=== PATIENT | male | born 1940 | race Caucasian/White ===

== ENCOUNTER → 2022-03-07 12:40 | Outpatient (CLI) | payer MEDICARE, SELFPAY | PROVIDERS: PCP Physician Assistant Medical; Visit Provider Physician Assistant Medical | DX: L03.90 Cellulitis, unspecified (principal) | CPT/HCPCS: 87070; 87075; 87077; 87147; 87186; 87205 ==

== ENCOUNTER → 2022-04-03 09:03 | Outpatient (CLI) | payer MEDICARE, SELFPAY ==
[2022-04-03 19:58] LABS: Add Manual Diff / Slide Review NO; Basophils Absolute Auto 100 /uL (0-100); Basophils Percent Auto 1.2 % (0-2); Eosinophils Absolute Auto 200 /uL (0-450); Eosinophils Percent Auto 3.4 % (2-4); Hematocrit 42.9 % (41-53); Hemoglobin 14.2 g/dL (13.5-17.5); Lymphocytes Absolute Auto 2200 /uL (1100-4500); Lymphocytes Percent Auto 38.2 % (25-40); Mean Corpuscular HGB Conc 33.2 % (30-36); Mean Corpuscular Hemoglobin 33.1 PG (26-34); Mean Corpuscular Volume 99.8 fL (80-100); Monocytes Absolute Auto 500 /uL (0-900); Neutrophils Absolute Auto 2800 /uL (1500-7000); Neutrophils Percent Auto 49.2 % (50-75); Platelet Count 231 X10^3/uL (150-400); Red Cell Distribution Width 13.4 % (11.6-14.8); White Blood Cell Count 5.8 X10^3/uL (4.5-11.0)
[2022-04-03 20:15] LABS: Alanine Aminotransferase 40 IU/L (<50); Albumin 4.4 g/dL (3.5-5.0); Albumin Globulin Ratio 1.6 (1.0-2.8); Alkaline Phosphatase 89 U/L (38-126); Aspartate Aminotransferase 43 IU/L (17-59); BUN Creatinine Ratio 20.3 (6-22); Bilirubin Total 0.7 mg/dL (0.2-1.3); Blood Urea Nitrogen 24 mg/dL (9-20); Calcium 9.2 mg/dL (8.4-10.2); Carbon Dioxide 29 mmol/L (22-32); Chloride 101 mmol/L (98-107); Cholesterol 199 mg/dL (140-199); Estimated Glomerular Filt Rate > 60 mL/min (>60); Globulin 2.7 g/dL (1.7-4.1); Glucose 94 mg/dL (80-110); HDL Cholesterol 84 mg/dL (40-60); HEMOLYSIS < 15 (0-50); LDL Cholesterol Calculated 99 mg/dL (<100); Potassium 4.6 mmol/L (3.4-5.1); Sodium 136 mmol/L (137-145); Total Protein 7.1 g/dL (6.3-8.2); Triglycerides 82 mg/dL (35-150)
[2022-04-03 20:46] LABS: TSH w/ Reflex to FT4 1.76 uIU/mL (0.47-4.68)
== END ==
PROVIDERS: PCP Physician Assistant Medical; Visit Provider Physician Assistant Medical
DX: R55 Syncope and collapse (principal)
CPT/HCPCS: 80053; 80061; 84443; 85025

== ENCOUNTER → 2022-05-27 15:06 | Outpatient (CLI) | payer MEDICARE, SELFPAY ==
--- NOTE | 2022-05-28 13:20 | DI.NM.S_ITS ---
DATE OF SERVICE: PROCEDURE: Exercise stress test. INDICATIONS: Dizziness, near syncope, hypertension. CARDIAC STRESS: The patient underwent exercise stress test under the supervision of an attending staff. The patient walked on Marty protocol for 6 minutes and achieved maximum heart rate of 139, which was 99% of target heart rate. Resting blood pressure 140/90 and peak blood pressure 190/96 mmHg. Achieved 7 METs of workload. ALEE -15%. Baseline rhythm sinus. During stress, no convincing ischemic changes seen. At peak exercise, patient has frequent PVCs, including ventricular couplets without any ventricular tachycardia. The patient felt fatigue. No chest pain. CONCLUSION: 1. Exercise stress test is negative for inducible ischemia. 2. Good exercise tolerance. Functional aerobic impairment -15%. Achieved 7 metabolic equivalents of workload. The patient is 81 years old. Resting blood pressure 140/90 and peak blood pressure 190/96 mmHg. At peak exercise, frequent premature ventricular contractions, including ventricular couplets without any ventricular tachycardia. No significant premature ventricular contractions in recovery. No claudication, lightheadedness or chest pain during exercise. Overall, low-risk exercise stress test. Correlate clinically. Dillon Hair - LINDSAY/tommy/cody doc#: [id number]/job#: [id number] dd: 05/27/2022 16:33:00 dt: 05/28/2022 01:11:00 DICTATING /COPIES TO: Charlene Mckeon MD COPIES MNE: KALYAN;
== END ==
PROVIDERS: PCP Physician Assistant Medical; Referring Provider Internal Medicine Cardiovascular Disease; Visit Provider Internal Medicine Cardiovascular Disease
DX: R55 Syncope and collapse (principal); I10 Essential (primary) hypertension; R42 Dizziness and giddiness
CPT/HCPCS: 93017

== ENCOUNTER → 2024-07-21 11:11 | Outpatient (CLI) | payer MEDICARE, SELFPAY ==
--- NOTE | 2024-07-21 11:15 | DI.CT.S_ITS ---
PROCEDURE: CT SINUS SCREEN WO CON INDICATIONS: Chronic cough sinus pressure drainage TECHNIQUE: Noncontrast 3.0 mm axial images acquired from the frontal sinuses to the mid- sella, with coronal and sagittal reformats. For radiation dose reduction, the following was used: automated exposure control, adjustment of mA and/or kV according to patient size. COMPARISON: None. FINDINGS: Image quality: Excellent. Maxillary Sinuses: Minimal mucosal thickening is seen inferiorly. The superior medial russell of the maxillary sinuses are demineralized. Ethmoid Air Cells: There is mild mucosal thickening within the ethmoid air cells. There is demineralization of the ethmoid air cell bony septations. Sphenoid Sinuses: No bony remodeling or destruction. Sinuses are clear. Frontal Sinuses: No bony remodeling or destruction. Moderate mucosal thickening is seen within the inferior medial right frontal sinus. Ostiomeatal Complexes: The ostiomeatal complexes are patent, yet they are highly constitutionally narrowed, with bilateral Valeriano cells. Miscellaneous: Visualized intra-orbital contents are normal. No zoe bullosa or paradoxical turbinate curvature. There is mild rightward nasal septal deviation. IMPRESSION: Scattered paranasal sinus disease is seen, which is worst within the right maxillary sinus. The ostiomeatal complexes are patent, yet they are highly constitutionally narrowed, with bilateral Valeriano cells. Dictated by: Francis Marquis M.D. on 07/21/2024 at 16:15 Approved by: Francis Marquis M.D. on 07/21/2024 at 16:17
== END ==
PROVIDERS: PCP Family Medicine; Referring Provider Family Medicine; Visit Provider Family Medicine
DX: J32.8 Other chronic sinusitis (principal); R05.3 Chronic cough
CPT/HCPCS: 70486

== ENCOUNTER → 2024-08-09 14:23 | Outpatient (CLI) | payer MEDICARE, SELFPAY ==
--- NOTE | 2024-08-09 14:25 | DI.CT.S_ITS ---
PROCEDURE: CT CHEST W CON INDICATIONS: COUGH/SHORTNESS OF BREATH TECHNIQUE: After the administration of intravenous contrast, 5 mm thick sections acquired from the pulmonary apices to the posterior costophrenic angles. 1 mm axial lung, 5 mm thick coronal and sagittal reformats and 7 mm axial MIP were acquired. For radiation dose reduction, the following was used: automated exposure control, adjustment of mA and/or kV according to patient size. COMPARISON: [facility] ([facility] CR, XR CHEST 2V, 02/19/2022, 14:50. [facility], CT, CT SOFT TISSUE NECK W CON, 08/09/2024, 15:11. FINDINGS: Image quality: Diagnostic. Lower Neck: No enlarged lymph nodes. Thyroid: No thyroid nodules which require sonographic follow up, per consensus guidelines. Axillae: No enlarged lymph nodes. Chest Wall: Unremarkable. Bones: No suspicious osseous lesion. Lungs and Pleura: No pneumothorax or pleural effusions. No acute airspace opacity. A few small pulmonary nodules. For example: -Right lower lobe 0.7 x 0.4 cm, (4/189). Platelike appearance. -Right middle lobe 0.3 cm, (4/134). Heart: Heart size is normal. Moderate to severe coronary artery disease. No pericardial effusion. Thoracic Vessels: The aorta and pulmonary arteries demonstrate normal size. Mediastinum and Pearl: No enlarged lymph nodes. Esophagus: No wall thickening. No hiatal hernia. Upper Abdomen: Visualized upper abdomen solid organs and bowel loops appear normal. IMPRESSION: 1. No acute airspace opacity. No pleural effusion. 2. Right lower lobe pulmonary nodule measuring 0.6 cm mean diameter. -Recommend follow-up CT chest in 12 months. 3. No adenopathy. Dictated by: Tushar Swain M.D. on 08/10/2024 at 8:49 Approved by: Tushar Swain M.D. on 08/10/2024 at 9:07
[2024-08-09 14:55] LABS: Estimated Glomerular Filt Rate > 60 mL/min (>60)
--- NOTE | 2024-08-09 15:11 | DI.CT.S_ITS ---
PROCEDURE: CT SOFT TISSUE NECK W CON INDICATIONS: chronic cough SOB PND stridor TECHNIQUE: After the administration of intravenous contrast, 3.0 mm axial sections acquired from the sella to the aortic arch. Additional oblique axial 3.0 mm sections acquired through the pharynx. 3 mm thick coronal and sagittal reformats were generated. For radiation dose reduction, the following was used: automated exposure control. COMPARISON: None. FINDINGS: Image quality: Excellent. Lymph nodes: No enlarged lymph nodes seen throughout the neck. Vessels: Visualized vasculature appears patent. Neck spaces: The oropharynx, nasopharynx, and pharynx demonstrate no mucosal lesions. The vocal cords, false vocal cords, pyriform sinuses, epiglottis, vallecula, and tongue base all appear normal. Extramucosal spaces appear unremarkable. Glands: The parotid and submandibular glands appear normal. Thyroid gland is unremarkable. Miscellaneous: Visualized brain and orbits appear normal. Lung apices appear clear. Superficial soft tissues appear normal. Bones: No suspicious bony lesions. Visualized sinuses and mastoids appear unremarkable. IMPRESSION: Unremarkable exam. Dictated by: Criss Elias M.D. on 08/09/2024 at 21:14 Approved by: Criss Elias M.D. on 08/09/2024 at 21:15
== END ==
LOC: CT 14:24
PROVIDERS: PCP Family Medicine; Referring Provider Family Medicine; Visit Provider Family Medicine
DX: R13.10 Dysphagia, unspecified (principal); R05.3 Chronic cough; R06.02 Shortness of breath; R06.1 Stridor
CPT/HCPCS: 70491; 71260; 82565; 82785; 86003; Q9967